=== PATIENT | female | born 1975 | race African-American/Black ===

== ENCOUNTER 2022-06-23 15:06 | Emergency (ER) | payer MEDICARE, OTHER ==
[~2022-06-23] VITALS: Ht 157.5 cm; Wt 71.0 kg
[2022-06-23 15:34] VITALS: BP 118/78
[2022-06-23] MEDS ORDERED: AZIT250T9 PO (16:14)
== END 2022-06-23 17:25 | disposition home or self-care (01) ==
LOC: ER 15:06
DX: J06.9 Acute upper respiratory infection, unspecified (principal); Z20.822 Contact with and (suspected) exposure to COVID-19
CPT/HCPCS: 36415; 87426; 87804

== ENCOUNTER 2025-04-21 23:09 | Emergency (ER) | payer MEDICARE, OTHER ==
[~2025-04-21] VITALS: Ht 157.5 cm; Wt 74.5 kg
[~2025-04-21 23:09] MED LIST: AZIT-43 PO
[2025-04-21 23:30] VITALS: BP 155/85; TEMP 98.2
[2025-04-22] MEDS ORDERED: AMOX875T4 PO (00:05)
[2025-04-22] MEDS ORDERED: CARB6.5S59 LEFT EAR (00:05)
--- NOTE | 2025-04-22 00:05 | ED.PDOC ---
Eye-HPI HPI Comments 50-year-old female presents to ER with complaints of left-sided earache pain x1 day. Patient reports that she has been experiencing 3/10 left-sided earache pain x1 day. Denies use of medications for current symptoms and presents to ER ambulatory on arrival, with steady gait, in no distress. Denies fever, recent swimming, headache, dizziness, nausea/vomiting, skin changes, ear drainage or any further symptoms/comply Chief Complaint: Earache Time Seen by MD: 23:22 Primary Care Provider: UNKNOWN Reviewed Notes: Nurses Notes, Medications, Allergies Allergies: Coded Allergies: NO KNOWN ALLERGIES (Unverified , 06/23/22) Home Meds Active Scripts Amoxicillin & Pot Clavulanate (Amoxicillin/Potassium Cla) 875 Mg Tab, 1 TAB PO BID for 7 Days, #14 TAB 0 Refills Prov:SHARLA MONSON 04/22/25 Carbamide Peroxide (Ear Drops Earwax Removal) 6.5 % Yina, 5 DROP LEFT EAR BID for 4 Days, #1 BOTTLE 0 Refills Prov:SHARLA MONSON 04/22/25 Azithromycin (Azithromycin) 250 Mg Tab, 250 MG PO DAILY for 6 Days, #6 TAB Prov:JULIOCESAR STARKS MD 06/23/22 Information Source: Patient Mode of Arrival: Ambulatory Past Medical History PAST MEDICAL HISTORY: Denies Surgical History: Denies all surgeries [employer] History: No Pertinent [employer] History Family History Family History: Unknown Social History Smoker: Non-Smoker Alcohol: Denies ETOH Use Drugs: Denies Drug Use Lives In: Home Constitutional: denies: chills, diaphoresis, fatigue, fever, malaise, sweats, weakness, others EENTM: reports: others (As stated in HPI) Respiratory: denies: cough, hemoptysis, orthopnea, SOB at rest, shortness of breath, SOB with excertion, stridor, wheezing, others Cardiovascular: denies: chest pain, dizzy spells, diaphoresis, Dyspnea on exertion, edema, irregular heart beat, left arm pain, lightheadedness, palpitations, PND, syncope, others Gastrointestinal: denies: abdomen distended, abdominal pain, blood streaked bowels, constipated, diarrhea, dysphagia, difficulty swallowing, hematemesis, melena, nausea, poor appetite, poor fluid intake, rectal bleeding, rectal pain, vomiting, others Genitourinary: denies: abnormal vagina bleeding, burning, dyspareunia, dysuria, flank pain, frequency, hematuria, incontinence, pain, , vagina discharge, urgency, others Neurological: denies: dizziness, fainting, headache, left sided numbness, left sided weakness, numbness, paresthesia, pre-existing deficit, right sided numbness, right sided weakness, seizure, speech problems, tingling, tremors, weakness, others Musculoskeletal: denies: back pain, gout, joint pain, joint swelling, muscle pain, muscle stiffness, neck pain, others Integumetry: denies: bruises, change in color, change in hair/nails, dryness, laceration, lesions, lumps, rash, wounds, others Allergic/Immunocompromised: denies: Difficulty Healing, Frequent Infections, Hives, Itching, others Hematologic/Lymphatic: denies: anemia, blood clots, easy bleeding, easy bruising, swollen glands, others Endocrine: denies: excessive hunger, excessive sweating, excessive thirst, excessive urination, flushing, intolerance to cold, intolerance to heat, unexplained weight gain, unexplained weight loss, others Psychiatric: denies: anxiety, bipolar disorder, depression, hopeless, panic disorder, schizophrenia, sleepless, suicidal, others Physical Exam General Appearance: No Apparent Distress HEENT: PERRL/EOMI, Pharynx Normal, TMs Normal, Other (Cerumen impaction noted to left middle ear canal. Unable to visualize left TM due to cerumen impaction. Remainder bilateral ear exam-unremarkable) Neck: Full Range of Motion, Non-Tender, Normal Respiratory: Chest Non-Tender, Lungs Clear, No Accessory Muscle Use, No Respiratory Distress, Normal Breath Sounds Cardiovascular: No Murmur, No Gallop, Regular Rate/Rhythm Breast Exam: Deferred Gastrointestinal: NOT DONE Genitalia: Deferred Pelvic: Deferred Rectal: Deferred Extremities: Normal capillary refill, Normal range of motion Neurologic: Alert, metal mixer II-XII nml as Tested, No Motor Deficits, Normal Affect, Normal Mood, No Sensory Deficits Cerebellar Function: Normal Reflexes: Normal Skin: Dry, Normal Color, Warm Lymphatic: No Adenopathy Was a procedure done? Was a procedure done?: No Sedation Sedation?: No EENT DIFF Eye: N/A Ear: Abrasion, Foreign Body, Otitis Externa, Otitis Media, Perforation X-Ray, Labs, Meds, VS Vital Signs Date Time Temp Pulse Resp B/P (MAP) Pulse Ox O2 Delivery O2 Flow Rate FiO2 04/21/25 23:15 98.2 90 20 155/85 100 98.2 Ibuprofen 800 mg p.o. ordered Patient in no distress during ER visit/prior to discharge Advised to follow up with PCP in 1-2 days Patient verbalized understanding and agreeable with current plan of care Advised to return to ER immediately if symptoms worsen Time of 1ST Reevaluation: 23:40 Reevaluation 1ST: N/A Patient Education/Counseling: Diagnosis, Treatment, Prognosis, Need For Follow Up Family Education/Counseling: No Family Present SEPSIS Sepsis Screen Date sepsis recognized/suspect: Apr 21, 2025 Time Sepsis recognized/suspect: 2317 Recent Procedure: No On Antibiotic Therapy: No Respiratory Rate >20: No Heart Rate >90: No Temp<36 C (96.8 F) or >38.3 C: No SBP <90 or MAP <65 mmHG: No New Acute Mental Status Change: No Is the patient on CPAP, BIPAP,: No Vital Signs Date Time Temp Pulse Resp B/P (MAP) Pulse Ox O2 Delivery O2 Flow Rate FiO2 04/21/25 23:15 98.2 90 20 155/85 100 98.2 Departure 1 Departure Time of Disposition: 00:02 Impression: Primary Impression: Impacted cerumen of left ear Disposition: 01 HOME / SELF CARE / HOMELESS Condition: Stable e-Prescriptions Ibuprofen (Ibuprofen) 800 Mg Tab 1 TAB PO TID PRN, #30 TAB 0 Refills Prov: SHARLA MONSON 04/22/25 Amoxicillin & Pot Clavulanate (Amoxicillin/Potassium Cla) 875 Mg Tab 1 TAB PO BID for 7 Days, #14 TAB 0 Refills Prov: SHARLA MONSON 04/22/25 Carbamide Peroxide (Ear Drops Earwax Removal) 6.5 % Yina 5 DROP LEFT EAR BID for 4 Days, #1 BOTTLE 0 Refills Prov: SHARLA MONSON 04/22/25 Discharged With: Self Critical Care Note Critical Care Time?: No Stability Stability form required: No Heart Score Heart Score: Heart Score Response (Comments) Value History N/A 0 EKG N/A 0 Age N/A 0 Risk Factors N/A 0 Troponin N/A 0 Total 0 SHARLA MONSON Apr 22, 2025 00:05
[2025-04-22 00:45] VITALS: PULSE 90; RESP 20; O2SAT 100
[2025-04-22] MEDS ORDERED: IBUP-1456 PO (00:51)
[2025-04-22] MEDS: IBUPROFEN 800 MG TAB PO ONE (01:07)
== END 2025-04-22 01:08 | disposition home or self-care (01) ==
LOC: ER 23:11
DX: H61.22 Impacted cerumen, left ear (principal); Z79.899 Other long term (current) drug therapy

== ENCOUNTER 2025-04-28 18:34 | Emergency (ER) | payer MEDICARE, OTHER ==
[~2025-04-28] VITALS: Ht 157.5 cm; Wt 69.8 kg
[~2025-04-28 18:34] MED LIST changes: +AMOX875T4 PO; +CARB6.5S59 LEFT EAR; +IBUP-1456 PO
[2025-04-28 20:27] VITALS: BP 147/77; PULSE 80; RESP 16; TEMP 98.4; O2SAT 97
[2025-04-28] MEDS ORDERED: CIPR1SUS8 LEFT EAR (20:34)
--- NOTE | 2025-04-28 20:34 | ED.PDOC ---
Eye-HPI HPI Comments 50 year old female presents to ER with complaints of left sided earache x 3 days. Patient states she was seen in ER here 1 week ago, diagnosed with a cerumen impaction to left ear and reports that her symptoms appeared to improve but x3 days has been experiencing 3/10 left-sided earache pain. Denies fever, dizziness, ear drainage, skin changes or any further symptoms/complaints Chief Complaint: Earache Time Seen by MD: 18:53 Primary Care Provider: UNKNOWN Reviewed Notes: Nurses Notes, Medications, Allergies Allergies: Coded Allergies: NO KNOWN ALLERGIES (Unverified , 06/23/22) Home Meds Active Scripts Ciprofloxacin-Dexamethasone (Ciprofloxacin/Dexamethaso 0.3-0.1 %) 1 Nupur Nupur, 4 DROP LEFT EAR BID for 7 Days, #1 BOTTLE 0 Refills Prov:SHARLA MONSON 04/28/25 Ibuprofen (Ibuprofen) 800 Mg Tab, 1 TAB PO TID PRN, #30 TAB 0 Refills Prov:SHARLA MONSON 04/22/25 Amoxicillin & Pot Clavulanate (Amoxicillin/Potassium Cla) 875 Mg Tab, 1 TAB PO BID for 7 Days, #14 TAB 0 Refills Prov:SHARLA MONSON 04/22/25 Carbamide Peroxide (Ear Drops Earwax Removal) 6.5 % Yina, 5 DROP LEFT EAR BID for 4 Days, #1 BOTTLE 0 Refills Prov:SHARLA MONSON 04/22/25 Azithromycin (Azithromycin) 250 Mg Tab, 250 MG PO DAILY for 6 Days, #6 TAB Prov:JULIOCESAR STARKS MD 06/23/22 Information Source: Patient Mode of Arrival: Ambulatory Past Medical History PAST MEDICAL HISTORY: Denies Surgical History: Denies all surgeries [employer] History: No Pertinent [employer] History Family History Family History: Unknown Social History Smoker: Non-Smoker Alcohol: Denies ETOH Use Drugs: Denies Drug Use Lives In: Home Constitutional: denies: chills, diaphoresis, fatigue, fever, malaise, sweats, weakness, others EENTM: reports: others (As stated in HPI) Respiratory: denies: cough, hemoptysis, orthopnea, SOB at rest, shortness of breath, SOB with excertion, stridor, wheezing, others Cardiovascular: denies: chest pain, dizzy spells, diaphoresis, Dyspnea on exertion, edema, irregular heart beat, left arm pain, lightheadedness, palpitations, PND, syncope, others Gastrointestinal: denies: abdomen distended, abdominal pain, blood streaked bowels, constipated, diarrhea, dysphagia, difficulty swallowing, hematemesis, melena, nausea, poor appetite, poor fluid intake, rectal bleeding, rectal pain, vomiting, others Genitourinary: denies: abnormal vagina bleeding, burning, dyspareunia, dysuria, flank pain, frequency, hematuria, incontinence, pain, , vagina discharge, urgency, others Neurological: denies: dizziness, fainting, headache, left sided numbness, left sided weakness, numbness, paresthesia, pre-existing deficit, right sided numbness, right sided weakness, seizure, speech problems, tingling, tremors, weakness, others Musculoskeletal: denies: back pain, gout, joint pain, joint swelling, muscle pain, muscle stiffness, neck pain, others Integumetry: denies: bruises, change in color, change in hair/nails, dryness, laceration, lesions, lumps, rash, wounds, others Allergic/Immunocompromised: denies: Difficulty Healing, Frequent Infections, Hives, Itching, others Hematologic/Lymphatic: denies: anemia, blood clots, easy bleeding, easy bruising, swollen glands, others Endocrine: denies: excessive hunger, excessive sweating, excessive thirst, excessive urination, flushing, intolerance to cold, intolerance to heat, unexplained weight gain, unexplained weight loss, others Psychiatric: denies: anxiety, bipolar disorder, depression, hopeless, panic disorder, schizophrenia, sleepless, suicidal, others Physical Exam General Appearance: No Apparent Distress HEENT: PERRL/EOMI, Pharynx Normal, Other (Cerumen impaction noted to left ear, unable to visualize left TM due to cerumen impaction. No skin changes noted. Remainder bilateral ear exam unremarkable) Neck: Full Range of Motion, Non-Tender, Normal Respiratory: Chest Non-Tender, Lungs Clear, No Accessory Muscle Use, No Respiratory Distress, Normal Breath Sounds Cardiovascular: No Murmur, No Gallop, Regular Rate/Rhythm Breast Exam: Deferred Gastrointestinal: NOT DONE Genitalia: Deferred Pelvic: Deferred Rectal: Deferred Extremities: Normal capillary refill, Normal range of motion Neurologic: Alert, No Motor Deficits, Normal Affect, Normal Mood, No Sensory Deficits Cerebellar Function: Normal Reflexes: Normal Skin: Dry, Normal Color, Warm Lymphatic: No Adenopathy Was a procedure done? Was a procedure done?: Yes Sedation Sedation?: No Foreign Body Removal Foreign body in: Ear (Cerumen impaction left ear) Anesthetic: Nothing Procedure: Identified, Removed (Ear lavage to left ear completed using warm water and 10 cc syringe. Moderate amount of cerumen removed and patient reported improvement in symptoms. Unable to visualize left TM due to remainder of cerumen impaction. No bleeding noted. Remainder left ear exam post ear lavage - unremarkable) Informed consent obtained: Yes Risks/benefits/alt described: Yes EENT DIFF Eye: N/A Ear: Foreign Body, Otitis Externa, Otitis Media, Perforation X-Ray, Labs, Meds, VS Vital Signs Date Time Temp Pulse Resp B/P (MAP) Pulse Ox O2 Delivery O2 Flow Rate FiO2 04/28/25 20:27 98.4 80 16 147/77 (100) 97 98.4 04/28/25 20:27 Room Air* 0 21 04/28/25 18:36 98.4 80 16 147/77 97 98.4 Patient had improvement in symptoms and in no distress prior to discharge Advised to follow up with ENT in one week if symptoms do not improve Advised to follow up with PCP in 1-2 days Patient verbalized understanding and agreeable with current plan of care Advised to return to ER immediately if symptoms worsen Time of 1ST Reevaluation: 20:14 Reevaluation 1ST: N/A Patient Education/Counseling: Diagnosis, Treatment, Prognosis, Need For Follow Up Family Education/Counseling: No Family Present SEPSIS Sepsis Screen Date sepsis recognized/suspect: Apr 28, 2025 Time Sepsis recognized/suspect: 1837 Recent Procedure: No On Antibiotic Therapy: No Respiratory Rate >20: No Heart Rate >90: No Temp<36 C (96.8 F) or >38.3 C: No SBP <90 or MAP <65 mmHG: No New Acute Mental Status Change: No Is the patient on CPAP, BIPAP,: No Vital Signs Date Time Temp Pulse Resp B/P (MAP) Pulse Ox O2 Delivery O2 Flow Rate FiO2 04/28/25 20:27 98.4 80 16 147/77 (100) 97 98.4 04/28/25 20:27 Room Air* 0 21 04/28/25 18:36 98.4 80 16 147/77 97 98.4 Departure 1 Departure Time of Disposition: 20:31 Impression: Primary Impression: Impacted cerumen of left ear Disposition: 01 HOME / SELF CARE / HOMELESS Condition: Stable e-Prescriptions Ciprofloxacin-Dexamethasone (Ciprofloxacin/Dexamethaso 0.3-0.1 %) 1 Nuupr Nupur 4 DROP LEFT EAR BID for 7 Days, #1 BOTTLE 0 Refills Prov: SHARLA MONSON 04/28/25 Discharged With: Self Critical Care Note Critical Care Time?: No Stability Stability form required: No Heart Score Heart Score: Heart Score Response (Comments) Value History N/A 0 EKG N/A 0 Age N/A 0 Risk Factors N/A 0 Troponin N/A 0 Total 0 SHARLA MONSON Apr 28, 2025 20:34
== END 2025-04-28 20:42 | disposition home or self-care (01) ==
LOC: ER 18:34
DX: H61.22 Impacted cerumen, left ear (principal); Z79.899 Other long term (current) drug therapy
CPT/HCPCS: 69209